=== PATIENT | male | born 1980 | race Caucasian/White ===

== ENCOUNTER 2016-09-27 21:05 | Emergency (ER) | payer OTHER ==
--- NOTE | 2016-09-27 21:58 | ER Document Report ---
ED Medical Screen (RME) - General Stated Complaint: POSSIBLE RASH Notes: 36 yo male c/o painful swelling to right inguinal area x 2-3 days. no urinary symptoms. no fever. no lifting. [employer]cher driver. also c/o persistant pururitic rash to right flank area x 2 weeks TRAVEL OUTSIDE OF THE [place] IN LAST 30 DAYS: No - Related Data Allergies/Adverse Reactions: venom-honey bee [bee venom (honey bee)] Allergy (Intermediate, Verified 04:50) Edema Past Medical History Pulmonary Medical History: Reports: Hx Asthma, Hx Bronchitis Traumatic Medical History: Denies: Hx Fractures, Hx Gunshot Wound, Hx Liver Laceration, Hx Pneumothorax, Hx Spine Fracture, Hx Spleen Laceration/Rupture, Hx Traumatic Brain Injury Past Surgical History: Reports: Hx Orthopedic Surgery - Immunizations Immunizations up to date: Yes Hx Diphtheria, Pertussis, Tetanus Vaccination: Yes Physical Exam - Vital signs Vitals: Temp Pulse Resp BP Pulse Ox 98.0 F 68 22 H 125/91 H 98 09/27/16 21:24 09/27/16 21:24 09/27/16 21:24 09/27/16 21:24 09/27/16 21:24 Course - Vital Signs Vital signs: Temp Pulse Resp BP Pulse Ox 98.0 F 68 22 H 125/91 H 98 09/27/16 21:24 09/27/16 21:24 09/27/16 21:24 09/27/16 21:24 09/27/16 21:24
[2016-09-28] MEDS ORDERED: VALACYCLOVIR HCL 500 MG TABLET PO ONE (02:03)
[2016-09-28] MEDS ORDERED: HYDROCODONE/ACETAMINOPHEN 5-325 MG 6 TAB/DSPK PO PRN ×2 (02:03→02:14)
[2016-09-28] MEDS ORDERED: PREDNISONE 20 MG TABLET PO ONE (02:03)
--- NOTE | 2016-09-28 02:09 | ER Document Report ---
ED Skin Rash/Insect Bite/Abscs - General Information source: Patient TRAVEL OUTSIDE OF THE [place] IN LAST 30 DAYS: No - HPI Patient complains to provider of: Skin rash/lesion Onset: Other - 09/22/2016 Onset/Duration: Gradual, Worse Quality of pain: Burning Skin Character: Vesicular - General Chief Complaint: Abscess Stated Complaint: POSSIBLE RASH Notes: Patient is a 36-year-old male presenting to the emergency department concerned of a rash over his back and abdomen, which she noticed Sunday emergency 2016. Patient was seen at [facility] urgent care and told that he probably had poison shelly. Patient states the rash is very painful. Patient also complains of a tender lump in his right groin area that "everybody" is telling him is a hernia. (ROMAIN SHAHID) - Related Data Allergies/Adverse Reactions: venom-honey bee [bee venom (honey bee)] Allergy (Intermediate, Verified 21:58) Edema Past Medical History - General Information source: Patient - Social History Smoking Status: Current Every Day Smoker Chew tobacco use (# tins/day): No Frequency of alcohol use: Social Drug Abuse: None Family History: None, Reviewed & Not Pertinent Patient has suicidal ideation: No Patient has homicidal ideation: No Pulmonary Medical History: Reports: Hx Asthma, Hx Bronchitis Renal/ Medical History: Denies: Hx Peritoneal Dialysis Past Surgical History: Reports: Hx Orthopedic Surgery - Immunizations Immunizations up to date: Yes Hx Diphtheria, Pertussis, Tetanus Vaccination: Yes Review of Systems - Review of Systems Constitutional: No symptoms reported EENT: No symptoms reported Cardiovascular: No symptoms reported Respiratory: No symptoms reported Gastrointestinal: No symptoms reported Genitourinary: No symptoms reported Male Genitourinary: No symptoms reported Musculoskeletal: No symptoms reported Skin: See HPI, Lumps - Right groin area., Rash Hematologic/Lymphatic: No symptoms reported Neurological/Psychological: No symptoms reported -: Yes All other systems reviewed and negative Physical Exam - General General appearance: Appears well, Alert - HEENT Head: Normocephalic, Atraumatic Eyes: Normal Pupils: PERRL - Respiratory Respiratory status: No respiratory distress Chest status: Nontender Breath sounds: Normal Chest palpation: Normal - Cardiovascular Rhythm: Regular Heart sounds: Normal auscultation Murmur: No - Abdominal Inspection: Other - See skin exam Distension: No distension Bowel sounds: Normal Organomegaly: No organomegaly - Back Back: Other - See skin exam - Extremities General upper extremity: Normal inspection, Nontender, Normal color, Normal ROM , Normal temperature General lower extremity: Normal inspection, Nontender, Normal color, Normal ROM , Normal temperature - Neurological Neuro grossly intact: Yes Cognition: Normal Orientation: AAOx4 Colin Coma Scale Eye Opening: Spontaneous Colin Coma Scale Verbal: Oriented Cornish Coma Scale Motor: Obeys Commands Cornish Coma Scale Total: 15 Speech: Normal - Psychological Associated symptoms: Normal affect, Normal mood - Skin Skin Temperature: Warm Skin Moisture: Dry Skin irregularity: Rash Location of irregularity: Abdomen, Back Character of irregularity: Vesicular - Vesicular rash in a dermatomal pattern over right flank and mid abdomen. - Vital signs Vitals: Temp Pulse Resp BP Pulse Ox 98.0 F 68 22 H 125/91 H 98 09/27/16 21:24 09/27/16 21:24 09/27/16 21:24 09/27/16 21:24 09/27/16 21:24 - Abdominal Notes: Enlarged left inguinal lymph node (ROMAIN SHAHID) Course - Re-evaluation Re-evalutation: 09/28/16 Patient with vesicular rash consistent with shingles. Patient will be started on Valtrex and prednisone. He is to follow-up with his primary care doctor and return if he has any worsening or concerning symptoms. Given handwashing precautions. Stable for discharge. Understands and agrees with plan. (MARIA EUGENIA DAMON) - Vital Signs Vital signs: Temp Pulse Resp BP Pulse Ox 98.4 F 63 20 130/83 H 99 09/28/16 02:25 09/28/16 02:25 09/28/16 02:25 09/28/16 02:25 09/28/16 02:25 Discharge - Discharge Clinical Impression: Shingles Qualifiers: Herpes zoster complications: without complications Qualified Code(s): B02.9 - Zoster without complications Condition: Stable Disposition: HOME, SELF-CARE Instructions: Shingles ([facility]) Prescriptions: Oxycodone HCl/Acetaminophen [Percocet 5-325 mg Tablet] 1 - 2 tab PO Q4H PRN #15 tablet PRN Reason: Prednisone 40 mg PO DAILY #6 tablet Valacyclovir HCl [Valtrex] 1,000 mg PO TID #21 tablet Forms: Return to Work Scribe Attestation: 09/28/16 03:17 I personally performed the services described in the documentation, reviewed and edited the documentation which was dictated to the scribe in my presence, and it accurately records my words and actions. (MARIA EUGENIA DAMON) Scribe Documentation - Scribe Written by Gutierreze:: Romain Shahid 09/28/2016 [id number] acting as scribe for :: Kandis
[2016-09-28 03:00] VITALS: BP 130/83
== END 2016-09-28 02:26 | disposition home or self-care (01) ==
LOC: ER 21:05
DX: B02.9 Zoster without complications (principal); R59.0 Localized enlarged lymph nodes; J45.909 Unspecified asthma, uncomplicated; F17.200 Nicotine dependence, unspecified, uncomplicated; Z91.030 Bee allergy status
CPT/HCPCS: 99282; J7512